=== PATIENT | male | born 1990 | race Caucasian/White ===

== ENCOUNTER 2024-09-16 13:29 | Inpatient (IN) | payer MEDICAID, OTHER ==
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
[2024-09-16 16:44] LABS: Amphetamine Screen,Urine Not Detected (NotDetected); Barbiturate Screen,Urine Not Detected (NotDetected); Benzodiazepines Screen,Urine Not Detected (NotDetected); Cocaine Screen,Urine Not Detected (NotDetected); Methadone Screen, Urine Not Detected (NotDetected); Opiate Screen,Urine Not Detected (NotDetected); Oxycodone Screen, Urine Not Detected (NotDetected); Phencyclidine Screen,Urine Not Detected (NotDetected); Tricyclic Antidepressant,Urine Not Detected (NotDetected); Urn Cannabinoid Scrn Detected (NotDetected)
[2024-09-16] MEDS ORDERED: ACETAMINOPHEN TAB 325 MG TAB PO PRN (21:59)
[2024-09-16] MEDS ORDERED: LORazepam 2 MG/ML INJ IM PRN (21:59)
[2024-09-16] MEDS ORDERED: haloperidoL 5 MG TAB PO PRN (21:59)
[2024-09-16] MEDS ORDERED: HALOPERIDOL LACTATE 5 MG/ML 1 ML VIAL IM PRN (21:59)
[2024-09-16] MEDS ORDERED: MAG HYDROX/AL HYDROX/SIMETH 355 ML BOTTLE PO PRN (21:59)
[2024-09-16] MEDS ORDERED: LORazepam 1 MG TAB PO PRN (21:59)
[2024-09-16] MEDS ORDERED: IBUPROFEN 600 MG TAB PO PRN (21:59)
[2024-09-16] MEDS ORDERED: QUEtiapine 25 MG TAB PO PRN (21:59)
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
[2024-09-17 06:44] VITALS: RESP 16
[2024-09-17 09:29] LABS: Basophils % (A) 1 %; Eosinophils # (A) 0.2 k/uL (0-0.7); Eosinophils % (A) 4 %; HGB 16.1 gm/dL (13.0-17.5); Lymphocytes # (A) 1.7 k/uL (1.0-4.8); Lymphocytes % (A) 30 %; MCH 32.5 pg (25.0-35.0); MCHC 33.5 g/dL (31.0-37.0); MCV 96.8 fL (80.0-100.0); Mean Platelet Volume 7.7; Monocytes # (A) 0.3 k/uL (0-1.0); Monocytes % (A) 5 %; Neutrophils # (A) 3.4 k/uL (1.3-7.7); Neutrophils % (A) 58 %; Platelet Count 344 k/uL (150-450); RBC 4.96 m/uL (4.30-5.90); RDW 12.1 % (11.5-15.5); WBC 5.7 k/uL (3.8-10.6)
[2024-09-17] MEDS: NICOTINE 14MG/24HR PATCH TRANSDERM SCH (09:34)
[2024-09-17 09:46] LABS: ALT 28 U/L (4-49); AST 24 U/L (17-59); African American GFR (CKD) >90 (>60 ml/min/1.73 sqM); Albumin 4.8 g/dL (3.5-5.0); Alkaline Phosphatase 90 U/L (38-126); Anion Gap 9 mmol/L; Bilirubin, Delta 0.1 mg/dL (0.0-0.2); Bilirubin,Unconjugated 0.8 mg/dL (0.0-1.1); Blood Urea Nitrogen 11 mg/dL (9-20); Calcium 9.2 mg/dL (8.4-10.2); Carbon Dioxide 26 mmol/L (22-30); Chloride 103 mmol/L (98-107); Glucose 115 mg/dL (74-99); Non-African American GFR(CKD) >90 (>60 ml/min/1.73 sqM); Potassium 4.6 mmol/L (3.5-5.1); Sodium 138 mmol/L (137-145); Total Bilirubin 0.9 mg/dL (0.2-1.3); Total Protein 7.6 g/dL (6.3-8.2)
[2024-09-17] MEDS ORDERED: traZODone HCL 50 MG TAB PO PRN (12:35)
[2024-09-17] MEDS: SERTRALINE 25 MG TAB PO SCH (12:43)
[2024-09-17] MEDS: LITHIUM CARBONATE 150 MG CAP PO SCH (12:43)
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
[2024-09-17 13:24] LABS: Appearance,Urine Clear (Clear); Bilirubin,Urine Negative (Negative); Blood,Urine Negative (Negative); Color,Urine Light Yellow; Glucose,Urine (UA) Negative (Negative); Ketones,Urine Negative (Negative); Leukocyte Esterase,Urine Negative (Negative); Nitrite,Urine Negative (Negative); PH, Urine 7.5 (5.0-8.0); Protein,Urine Trace (Negative); Specific Gravity,Urine 1.019 (1.001-1.035); Urobilinogen,Urine <2.0 mg/dL (<2.0)
[2024-09-17 15:14] LABS: Chol/HDL Ratio 3.73 Ratio; LDL Cholesterol,Calculated 104.4 mg/dL (0.0-131.0); VLDL Calculation 10.46 mg/dL (5.00-40.00)
[2024-09-18] MEDS: MAGNESIUM HYDROXIDE 2,400 MG/30 ML CUP PO PRN (08:55)
--- NOTE | 2024-09-18 11:29 | P.PN ---
Progress Note - Text Progress Note Date: 09/18/24 Interval History: Patient was seen in group, and was directable and agreeable to speak with securities underwriter in the office. He reports that he is a little sad, and a little anxious today. He keeps thinking of his missing cat. He claims his stomach is upset a bit, and that he was mildly constipated. He took some medication to help with that, and it helped. He had a restless sleep last night, he states he tossed and turned, and woke up several times during the night. He is endorsing a good appetite. He states that his racing thoughts are calming down. At this time patient denies any suicidal or homicidal ideations, intent or plan. Patient denies any auditory, visual hallucinations and denies any paranoia or delusions. Patient denies any side effects from the medications and has been compliant with meds. MENTAL STATUS EXAM: General Appearance: Patient appears to be stated age is alert, directable, and attempts to cooperate. Patient appears to have fair hygiene and grooming. Balding. Unshaved face. Dressed casually. Behavior: Patient is seated without any agitated behavior. fair eye contact. Speech: Patient's speech is fluent and nonpressured. Mood/Affect: Patient reports their mood is a little sad, affect is congruent and constricted, mildly improving Suicidality/Homicidality: Patient denies having any homicidal ideation intent or plan. Denies any suicidal ideations intent or plan Perceptions: Patient denies any visual hallucinations and denies any auditory hallucinations Though content/process: There is no evidence of any delusional thought content and thought process is circumstantial and concrete, mildly improving Memory and concentration: AOX3, grossly intact for the purposes of this session. Judgment and insight: poor, mildly improving IMPRESSIONS: mood disorder, unspecified nicotine dependance cannabis use disorder PLAN: -Patient is admitted under [voluntary] status to MHU for stabilization of psychiatric symptoms and safety. Patient has signed adult voluntary form and medication consent and is placed in patient's chart. -Medications : increase Zoloft 50mg daily for mood/anxiety, lithium 150mg bid for mood stabilization, trazodone 50mg qhs prn for sleep -Ativan and Haldol PRN for agitation/aggression -NRT - [nicotine patch] -SW on board for discharge planning. Encourage patient to participate in groups to work on coping skills. Possible d/c Monday if patient continues to improve
[2024-09-19] MEDS: SERTRALINE 50 MG TAB PO SCH ×2 (08:54→21:36)
--- NOTE | 2024-09-19 11:18 | P.PN ---
Progress Note - Text Progress Note Date: 09/19/24 Interval History: Patient was seen in group, and was directable and agreeable to speak with handbook writer in the office. He reports a mildly queasy stomach. He does claim that his sleep is broken. He states that his home environment is very stressful, so he is anxious about that. He is looking forward to looking for a job, so he can get his own place. He endorses a good appetite. He is going to all the groups. At this time patient denies any suicidal or homicidal ideations, intent or plan. Patient denies any auditory, visual hallucinations and denies any paranoia or delusions. Patient denies any side effects from the medications and has been compliant with meds. MENTAL STATUS EXAM: General Appearance: Patient appears to be stated age is alert, directable, and attempts to cooperate. Patient appears to have fair hygiene and grooming. Balding. Unshaved face. Dressed casually. Behavior: Patient is seated without any agitated behavior. fair eye contact. Speech: Patient's speech is fluent and nonpressured. Mood/Affect: Patient reports their mood is improving, affect is congruent and mildly improving Suicidality/Homicidality: Patient denies having any homicidal ideation intent or plan. Denies any suicidal ideations intent or plan Perceptions: Patient denies any visual hallucinations and denies any auditory hallucinations Though content/process: There is no evidence of any delusional thought content and thought process is circumstantial and concrete, mildly improving Memory and concentration: AOX3, grossly intact for the purposes of this session. Judgment and insight: mildly improving IMPRESSIONS: mood disorder, unspecified nicotine dependance cannabis use disorder PLAN: -Patient is admitted under [voluntary] status to [facility]HU for stabilization of psychiatric symptoms and safety. Patient has signed adult voluntary form and medication consent and is placed in patient's chart. -Medications :change Zoloft 50mg qhs for mood/anxiety,change lithium 300mg qhs for mood stabilization, trazodone 50mg qhs prn for sleep -Ativan and Haldol PRN for agitation/aggression -NRT - [nicotine patch] -SW on board for discharge planning. Encourage patient to participate in groups to work on coping skills. Possible d/c tomorrow, if patient continues to improve
[2024-09-19] MEDS: LITHIUM CARBONATE 300 MG CAP PO SCH (21:36)
[2024-09-20 06:34] VITALS: BP 122/77; PULSE 61; TEMP 97.8
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
== END 2024-09-20 13:01 | disposition home or self-care (01) | DRG 753 ==
LOC: EC 13:29 → 3MHU 21:56
PROVIDERS: ADMIT Psychiatry & Neurology Psychiatry; ATTEND Psychiatry & Neurology Psychiatry
DX: F39 Unspecified mood [affective] disorder (principal); F12.90 Cannabis use, unspecified, uncomplicated; F17.210 Nicotine dependence, cigarettes, uncomplicated; F22 Delusional disorders; F32.A Depression, unspecified; F41.0 Panic disorder [episodic paroxysmal anxiety]; F51.5 Nightmare disorder; K59.00 Constipation, unspecified; R45.851 Suicidal ideations; Z63.9 Problem related to primary support group, unspecified; Z79.899 Other long term (current) drug therapy; Z11.52 Encounter for screening for COVID-19
CPT/HCPCS: 80053; 80061; 80306; 81003; 82075; 82248; 83036; 84443; 85025; 87636; 99285

== ENCOUNTER 2025-01-21 19:32 | Inpatient (IN) | payer MEDICAID, OTHER ==
--- NOTE | 2025-01-21 22:20 | ED ---
General Adult HPI - General Chief complaint: Psychiatric Symptoms Stated complaint: mental health Time Seen by Provider: 01/21/25 21:59 Source: patient, RN notes reviewed, old records reviewed Mode of arrival: ambulatory Limitations: no limitations - History of Present Illness Initial comments: Patient is a 34-year-old male who presents emergency department for psychiatric evaluation. Patient presents as a court ordered pickup. The patient's petition describes some bizarre behavior, concern for not taking medications, as well as possible agitation. Patient endorses marijuana use but no other drug use. Denies any suicidal or homicidal ideations or intents or plans. Denies any hallucinations. Is currently cooperative. Presents for further evaluation at this time. - Related Data Previous Rx's Medication Instructions Recorded [place] Carbonate 300 mg PO HS 30 Days #30 cap 09/20/24 Nicotine 14Mg/24Hr Patch [Habitrol] 1 patch TRANSDERM DAILY 14 Days 09/20/24 #14 patch Sertraline [Zoloft] 50 mg PO HS 30 Days #30 tab 09/20/24 Allergies Allergy/AdvReac Type Severity Reaction Status Date / Time Fish Containing Products Allergy Anaphylaxis Verified 01/21/25 20:20 [Fish] peanut Allergy Anaphylaxis Verified 01/21/25 20:20 shellfish derived [Shellfish] Allergy Rash/Hives Verified 01/21/25 20:20 shrimp Allergy Rash/Hives Verified 01/21/25 20:20 tree nut Allergy Anaphylaxis Verified 01/21/25 20:20 Review of Systems ROS Statement: Those systems with pertinent positive or pertinent negative responses have been documented in the HPI. Review of Systems: CONST: Denies fever EYES: Denies blurry vision ENT: Denies nasal congestion C/V: Denies Chest pain RESP: Denies shortness of breath GI: Denies abdominal pain : Denies dysuria SKIN: Denies rash. MSK: Denies joint pain. NEURO: Denies headache ROS Other: All systems not noted in ROS Statement are negative. Past Medical History Past Medical History: Asthma History of Any Multi-Drug Resistant Organisms: None Reported Past Surgical History: Appendectomy Past Psychological History: Anxiety, Depression, Panic Disorder Smoking Status: Never smoker Past Alcohol Use History: None Reported Past Drug Use History: Marijuana - Past Family History Mother History Unknown: Yes General Exam - General Exam Comments Initial Comments: General: Appears in no acute distress. HEAD: Normal with no signs of head trauma. EYES: EOMI. ENT: Hearing grossly intact. RESPIRATORY: No respiratory distress. C/V: Regular rate and rhythm. ABD: Abdomen is nondistended. EXT: No obvious deformity. SKIN: No rashes or lesions observed on exposed skin. NEURO: Alert and oriented. Limitations: no limitations Course Vital Signs 01/21/25 01/22/25 20:21 00:24 Temperature 98.0 F 97.8 F Pulse Rate 59 L 71 Respiratory 18 18 Rate Blood Pressure 124/76 124/84 O2 Sat by Pulse 98 97 Oximetry Medical Decision Making - Medical Decision Making Was pt. sent in by a medical professional or institution (, PA, FLIGHT FOLLOWER, urgent care, hospital, or care home...) When possible be specific @ -No Did you speak to anyone other than the patient for history (EMS, parent, family, police, friend...)? What history was obtained from this source @ -No Did you review nursing and triage notes (agree or disagree)? Why? @ -I reviewed and agree with nursing and triage notes Were old charts reviewed (outside hosp., previous admission, EMS record, old EKG, old radiological studies, urgent care reports/EKG's, care home records)? Report findings @ -Reviewed the petition. Differential Diagnosis (chest pain, altered mental status, abdominal pain women, abdominal pain men, vaginal bleeding, weakness, fever, dyspnea, syncope, headache, dizziness, GI bleed, back pain, seizure, CVA, palpatations, mental health, musculoskeletal)? @ -Differential Mental Health Depression, anxiety, bipolar, psychosis, schizophrenia, borderline personality, situational depression, adjustment disorder, behavioral disorder, brain tumor, malingering, substance abuse, encephalopathy, medication reaction, dementia, hypothyroidism, degenerative neurologic disorder, lupus.... This is not meant to be all-inclusive list EKG interpreted by me (3pts min.). @ -None done X-rays interpreted by me (1pt min.). @ -None done CT interpreted by me (1pt min.). @ -None done U/S interpreted by me (1pt. min.). @ -None done What testing was considered but not performed or refused? (CT, X-rays, U/S, labs)? Why? @ -None What meds were considered but not given or refused? Why? @ -None Did you discuss the management of the patient with other professionals (professionals i.e. , PA, FLIGHT FOLLOWER, lab, RT, psych nurse, social service worker, scissors grinder, teacher, human resource officer, family independence case manager)? Give summary @ -EPS notified of the consult Was smoking cessation discussed for >3mins.? @ -No Was critical care preformed (if so, how long)? @ -No Were there social determinants of health that impacted care today? How? (Homelessness, low income, unemployed, alcoholism, drug addiction, transportation, low edu. Level, literacy, decrease access to med. care, intermediate, rehab)? @ -No Was there de-escalation of care discussed even if they declined (Discuss DNR or withdrawal of care, Hospice)? DNR status @ -No What co-morbidities impacted this encounter? (DM, HTN, Smoking, COPD, CAD, Cancer, CVA, ARF, Chemo, Hep., AIDS, mental health diagnosis, sleep apnea, mor bid obesity)? @ -None Was patient admitted / discharged? Hospital course, mention meds given and ro shannon, prescriptions, significant lab abnormalities, going to OR and other pertinent info. @ -Patient presents as a court ordered petition for medication noncompliance as well as bizarre behavior. Does have a mental health history. Currently cooperative. Vitals within acceptable limits. Has no acute complaints at this time. BAT is 0. UDS is pending. At this time, patient is medically cleared for evaluation by psychiatry. Disposition pending psychiatric evaluation. EPS notified of the consult. Patient evaluated by EPS and determined that he does meet inpatient criteria for admission. Undiagnosed new problem with uncertain prognosis? @ -No Drug Therapy requiring intensive monitoring for toxicity (Heparin, Nitro, Insulin, Cardizem)? @ -No Were any procedures done? @ -No Diagnosis/symptom? @ -Encounter for psychiatric evaluation, medication noncompliance, bizzarre behavior. Acute, or Chronic, or Acute on Chronic? @ -Acute Uncomplicated (without systemic symptoms) or Complicated (systemic symptoms)? @ -Complicated Side effects of treatment? @ -None Exacerbation, Progression, or Severe Exacerbation] @ -No Poses a threat to life or bodily function? @ -Possibly, yes - Lab Data Result diagrams: 01/22/25 08:02 01/22/25 08:02 Lab Results 01/21/25 01/21/25 01/21/25 Range/Units 22:47 22:47 22:47 Urine Color Yellow Urine Appearance Cloudy (Clear) Urine pH 7.0 (5.0-8.0) Ur Specific [place] 1.027 (1.001-1.035) Urine Protein Trace H (Negative) Urine Glucose (UA) Negative (Negative) Urine Ketones Negative (Negative) Urine Blood Negative (Negative) Urine Nitrite Negative (Negative) Urine Bilirubin Negative (Negative) Urine Urobilinogen 2.0 (<2.0) mg/dL Ur Leukocyte Esterase Negative (Negative) Urine RBC 1 (0-5) /hpf Urine WBC 3 (0-5) /hpf Ur Squamous Epith Cells <1 (0-4) /hpf Amorphous Sediment Few H (None) /hpf Urine Mucus Occasional H (None) /hpf Urine Opiates Screen Not Detected (NotDetected) Ur Oxycodone Screen Not Detected (NotDetected) Urine Methadone Screen Not Detected (NotDetected) Ur Barbiturates Screen Not Detected (NotDetected) U Tricyclic Antidepress Not Detected (NotDetected) Ur Phencyclidine Scrn Not Detected (NotDetected) Ur Amphetamines Screen Not Detected (NotDetected) U Methamphetamines Scrn Not Detected (NotDetected) U Benzodiazepines Scrn Not Detected (NotDetected) Urine Cocaine Screen Not Detected (NotDetected) U Marijuana (THC) Screen Detected H (NotDetected) SARS-CoV-2 (PCR) Not Detected (Not Detectd) Disposition Clinical Impression: Encounter for psychiatric assessment, Nonadherence to medication, Bizarre behavior Disposition: TRANSFER TO PSYCH HOSP/UNIT Condition: Stable Time of Disposition: 23:20
[2025-01-22 00:11] LABS: Amphetamine Screen,Urine Not Detected (NotDetected); Barbiturate Screen,Urine Not Detected (NotDetected); Benzodiazepines Screen,Urine Not Detected (NotDetected); Cocaine Screen,Urine Not Detected (NotDetected); Methadone Screen, Urine Not Detected (NotDetected); Opiate Screen,Urine Not Detected (NotDetected); Phencyclidine Screen,Urine Not Detected (NotDetected); Tricyclic Antidepressant,Urine Not Detected (NotDetected); Urn Cannabinoid Scrn Detected (NotDetected)
[2025-01-22 00:12] LABS: Oxycodone Screen, Urine Not Detected (NotDetected)
[2025-01-22] MEDS ORDERED: HALOPERIDOL LACTATE 5 MG/ML 1 ML VIAL IM PRN (00:16)
[2025-01-22] MEDS ORDERED: haloperidoL 5 MG TAB PO PRN (00:16)
[2025-01-22] MEDS ORDERED: LORazepam 1 MG TAB PO PRN (00:16)
[2025-01-22] MEDS ORDERED: MAGNESIUM HYDROXIDE 2,400 MG/30 ML CUP PO PRN (00:16)
[2025-01-22] MEDS ORDERED: MAG HYDROX/AL HYDROX/SIMETH 355 ML BOTTLE PO PRN (00:16)
[2025-01-22] MEDS ORDERED: IBUPROFEN 600 MG TAB PO PRN (00:16)
[2025-01-22] MEDS ORDERED: LORazepam 2 MG/ML INJ IM PRN (00:16)
[2025-01-22] MEDS ORDERED: ACETAMINOPHEN TAB 325 MG TAB PO PRN (00:16)
[2025-01-22 07:38] LABS: Amorphous Sediment,Urine Few /hpf; Appearance,Urine Cloudy (Clear); Bilirubin,Urine Negative (Negative); Blood,Urine Negative (Negative); Color,Urine Yellow; Glucose,Urine (UA) Negative (Negative); Ketones,Urine Negative (Negative); Leukocyte Esterase,Urine Negative (Negative); Mucus,Urine Occasional /hpf; Nitrite,Urine Negative (Negative); Protein,Urine Trace (Negative); RBC,Urine 1 /hpf (0-5); Specific Gravity,Urine 1.027 (1.001-1.035); Squamous Epithelial Cell,Urine <1 /hpf (0-4); WBC,Urine 3 /hpf (0-5)
[2025-01-22 08:22] LABS: Basophils # (A) 0.1 k/uL (0-0.2); Basophils % (A) 1 %; Eosinophils # (A) 0.4 k/uL (0-0.7); Eosinophils % (A) 6 %; HCT 47.9 % (39.0-53.0); HGB 14.7 gm/dL (13.0-17.5); Lymphocytes # (A) 1.8 k/uL (1.0-4.8); Lymphocytes % (A) 27 %; MCH 30.6 pg (25.0-35.0); MCHC 30.6 g/dL (31.0-37.0); MCV 99.9 fL (80.0-100.0); Mean Platelet Volume 7.2; Monocytes # (A) 0.4 k/uL (0-1.0); Monocytes % (A) 6 %; Neutrophils # (A) 4.1 k/uL (1.3-7.7); Neutrophils % (A) 59 %; Platelet Count 331 k/uL (150-450); RDW 11.7 % (11.5-15.5); WBC 6.9 k/uL (3.8-10.6)
[2025-01-22 08:31] LABS: ALT 21 U/L (4-49); AST 20 U/L (17-59); African American GFR (CKD) >90 (>60 ml/min/1.73 sqM); Albumin 4.6 g/dL (3.5-5.0); Alkaline Phosphatase 92 U/L (38-126); Anion Gap 8 mmol/L; Blood Urea Nitrogen 15 mg/dL (9-20); Calcium 9.3 mg/dL (8.4-10.2); Carbon Dioxide 27 mmol/L (22-30); Chloride 103 mmol/L (98-107); Glucose 95 mg/dL (74-99); Non-African American GFR(CKD) >90 (>60 ml/min/1.73 sqM); Potassium 4.4 mmol/L (3.5-5.1); Sodium 138 mmol/L (137-145); Total Bilirubin 0.4 mg/dL (0.2-1.3); Total Protein 7.1 g/dL (6.3-8.2)
[2025-01-22] MEDS: NICOTINE 14MG/24HR PATCH TRANSDERM SCH (10:04)
--- NOTE | 2025-01-22 12:51 | P.HP ---
Psychiatric H&P - . H&P Date: 01/22/25 History & Physical: Allergies Allergy/AdvReac Type Severity Reaction Status Date / Time Fish Containing Products Allergy Anaphylaxis Verified 01/21/25 20:20 Fish peanut Allergy Anaphylaxis Verified 01/21/25 20:20 shellfish derived shellfish Allergy Rash/Hives Verified 01/21/25 20:20 shrimp Allergy Rash/Hives Verified 01/21/25 20:20 tree nut Allergy Anaphylaxis Verified 01/21/25 20:20 Vital Signs Temp 97.6 F 01/22/25 00:37 Pulse 71 01/22/25 09:37 Resp 16 01/22/25 09:37 BP 122/73 01/22/25 09:37 Pulse Ox 99 01/22/25 00:37 FiO2 Intake & Output 01/21/25 01/22/25 01/22/25 18:59 06:59 18:59 Weight 73.227 kg Laboratory Last Values WBC 6.9 k/uL (3.8-10.6) 01/22/25 08:02 RBC 4.80 m/uL (4.30-5.90) 01/22/25 08:02 Hgb 14.7 gm/dL (13.0-17.5) 01/22/25 08:02 Hct 47.9 % (39.0-53.0) 01/22/25 08:02 MCV 99.9 fL (80.0-100.0) 01/22/25 08:02 MCH 30.6 pg (25.0-35.0) 01/22/25 08:02 MCHC 30.6 g/dL (31.0-37.0) L 01/22/25 08:02 RDW 11.7 % (11.5-15.5) 01/22/25 08:02 Plt Count 331 k/uL (150-450) 01/22/25 08:02 MPV 7.2 01/22/25 08:02 Neutrophils % 59 % 01/22/25 08:02 Lymphocytes % 27 % 01/22/25 08:02 Monocytes % 6 % 01/22/25 08:02 Eosinophils % 6 % 01/22/25 08:02 Basophils % 1 % 01/22/25 08:02 Neutrophils # 4.1 k/uL (1.3-7.7) 01/22/25 08:02 Lymphocytes # 1.8 k/uL (1.0-4.8) 01/22/25 08:02 Monocytes # 0.4 k/uL (0-1.0) 01/22/25 08:02 Eosinophils # 0.4 k/uL (0-0.7) 01/22/25 08:02 Basophils # 0.1 k/uL (0-0.2) 01/22/25 08:02 Sodium 138 mmol/L (137-145) 01/22/25 08:02 Potassium 4.4 mmol/L (3.5-5.1) 01/22/25 08:02 Chloride 103 mmol/L (98-107) 01/22/25 08:02 Carbon Dioxide 27 mmol/L (22-30) 01/22/25 08:02 Anion Gap 8 mmol/L 01/22/25 08:02 BUN 15 mg/dL (9-20) 01/22/25 08:02 Creatinine 0.68 mg/dL (0.66-1.25) 01/22/25 08:02 Est GFR (CKD-EPI)AfAm >90 (>60 ml/min/1.73 sqM) 01/22/25 08:02 Est GFR (CKD-EPI)NonAf >90 (>60 ml/min/1.73 sqM) 01/22/25 08:02 Glucose 95 mg/dL (74-99) 01/22/25 08:02 Calcium 9.3 mg/dL (8.4-10.2) 01/22/25 08:02 Total Bilirubin 0.4 mg/dL (0.2-1.3) 01/22/25 08:02 AST 20 U/L (17-59) 01/22/25 08:02 ALT 21 U/L (4-49) 01/22/25 08:02 Alkaline Phosphatase 92 U/L (38-126) 01/22/25 08:02 Total Protein 7.1 g/dL (6.3-8.2) 01/22/25 08:02 Albumin 4.6 g/dL (3.5-5.0) 01/22/25 08:02 TSH 2.330 mIU/L (0.465-4.680) 01/22/25 08:02 Urine Color Yellow 01/21/25 22:47 Urine Appearance Cloudy (Clear) 01/21/25 22:47 Urine pH 7.0 (5.0-8.0) 01/21/25 22:47 Ur Specific [place] 1.027 (1.001-1.035) 01/21/25 22:47 Urine Protein Trace (Negative) H 01/21/25 22:47 Urine Glucose (UA) Negative (Negative) 01/21/25: Urine Ketones Negative (Negative) 01/21/25: Urine Blood Negative (Negative) 01/21/25: Urine Nitrite Negative (Negative) 01/21/25: Urine Bilirubin Negative (Negative) 01/21/25: Urine Urobilinogen 2.0 mg/dL (<2.0) 01/21/25 22: Ur Leukocyte Esterase Negative (Negative) 01/21/25 22: Urine RBC 1 /hpf (0-5) 01/21/25 22: Urine WBC 3 /hpf (0-5) 01/21/25 22: Ur Squamous Epith Cells <1 /hpf (0-4) 01/21/25 22:47 Amorphous Sediment Few /hpf (None) H 01/21/25 22:47 Urine Mucus Occasional /hpf (None) H 01/21/25 22:47 Urine Opiates Screen Not Detected (NotDetected) 01/21/25 22:47 Ur Oxycodone Screen Not Detected (NotDetected) 01/21/25 22:47 Urine Methadone Screen Not Detected (NotDetected) 01/21/25 22:47 Ur Barbiturates Screen Not Detected (NotDetected) 01/21/25 22:47 U Tricyclic Antidepress Not Detected (NotDetected) 01/21/25 22:47 Ur Phencyclidine Scrn Not Detected (NotDetected) 01/21/25 22:47 Ur Amphetamines Screen Not Detected (NotDetected) 01/21/25 22:47 U Methamphetamines Scrn Not Detected (NotDetected) 01/21/25 22:47 U Benzodiazepines Scrn Not Detected (NotDetected) 01/21/25 22:47 Urine Cocaine Screen Not Detected (NotDetected) 01/21/25 22:47 U Marijuana (THC) Screen Detected (NotDetected) H 01/21/25 22:47 SARS-CoV-2 (PCR) Not Detected (Not Detectd) 01/21/25 22:47 01/22/25 12:28 IDENTIFYING DATA: Patient is a 34-year-old male. Lives with his mother and her significant other in a house. Single, no children. Unemployed. HPI: Patient presented to the hospital last night for psychiatric evaluation. Patient apparently was on a court order pickup for evaluation. Patient apparently was bizarre not taking medications appeared agitated. Urine drug screens positive for THC. Patient was last admitted to mental health unit in September 2024. He was discharged on lithium and Zoloft at that time. Patient was seen interacting with others on the unit, agreeable to speak to pattern chart writer in the office today. He appeared to be a bit labile in his emotions, was loud at times during the interview, bizarre, intrusive at times. Claims that he about a week ago he got a new ed case manager from [facility] and claims that "I feel like nothing is progressing" and states that he feels that he may have scared her off and claims that he went to his room states that "maybe I talk too loud". He feels that he has been having more mood swings increase in energy was rambling at times, tangential during conversation, was fairly talkative endorsing racing thoughts. Claims that he has been feeling more worked up lately. Claims that his team at [facility] has been "playing the [employer] advocate". He states that he is also still looking for his lost cat. He was fairly intrusive and animated. Claims that his sleep has been on and off appetite has been fair. patient denies any suicidal or homicidal ideations intent or plan. At this time patient denies any auditory or visual hallucinations. Patient admits to using marijuana and cigarettes. PAST PSYCHIATRIC HISTORY: Patient has a history of mood disorder, possibly bipolar, cannabis use. Patient was last admitted to the mental health unit in September 2020 for. Patient currently follows up with [facility], does not know the names of the people involved in his care. Patient states that he was previously on Zoloft and lithium however claims that for the past 2 or 3 weeks he stopped taking it. Patient denies any history of suicide attempts in the past. PMH:As per ED note ALLERGIES: as per EMR CHEMICAL DEPENDENCY HISTORY: as per HPI FAMILY PSYCHIATRIC/SUBSTANCE USE HISTORY: Patient is unsure SOCIAL HISTORY: Patient was born and raised in [place], currently lives in [place]. Has a GED. Single. No children. Lives with his mother. Unemployed. Has been to group home for a day when he was 21. MENTAL STATUS EXAM: General Appearance: Patient appears to be stated age is alert, directable, and attempts to cooperate. Patient appears to have fair hygiene and grooming. Balding. Unshaved face. Dressed casually. Behavior: Patient is seated without any agitated behavior. Patient is fairly intrusive, labile at times Speech: Patient's speech is fluent, rambling talkative. Mood/Affect: Patient reports their mood is anxious and claims he has mood swings, affect is congruent and fairly labile Suicidality/Homicidality: Patient denies having any homicidal ideation intent or plan. Denies any suicidal ideations intent or plan Perceptions: Patient denies any visual hallucinations [and denies any auditory hallucinations Though content/process: There is no evidence of any delusional thought content and thought process is circumstantial/tangential, endorsing racing thoughts Memory and concentration: AOX3, grossly intact for the purposes of this session. Can spell "WORLD" backwards Judgment and insight: poor STRENGTHS/WEAKNESSES: strength is that patient is resilient. Weakness is that patient has poor judgment and is impulsive and noncompliant with medications INTELLECT: average IMPRESSIONS: mood disorder, unspecified, likely bipolar disorder Noncompliance with medication regimen nicotine dependance cannabis use disorder PLAN: -Patient is admitted under voluntary status to MHU for stabilization of psychiatric symptoms and safety. Patient has signed adult voluntary form and medication consent and is placed in patient's chart. -Medications : Zoloft 50 mg nightly for mood/anxiety, trazodone 50mg qhs for sleep, Abilify 5 mg daily for mood stabilization, patient might be interested in long-acting injection. -Ativan and Haldol PRN for agitation/aggression -Patient was informed of the risks, benefits and side effects of the medication and patient verbally consented to taking the medications. Patient signed medication consent form, was offered information on medications and excepted it. -Internal Medicine consult to perform medical evaluation and physical. -NRT -nicotine patch -SW on board for discharge planning. Encourage patient to participate in groups to work on coping skills. 01/22/25 12:46
[2025-01-22] MEDS: ARIPiprazole 5 MG TAB PO SCH (13:08)
[2025-01-22] MEDS: traZODone HCL 50 MG TAB PO SCH (20:48)
[2025-01-22] MEDS: SERTRALINE 50 MG TAB PO SCH (20:48)
--- NOTE | 2025-01-22 22:36 | P.MDCNMH ---
History of Present Illness H&P Date: 01/22/25 Patient is a 34-year-old male who presents for psychiatric evaluation. Arrived as a court ordered pickup. He has been having bizarre behavior and there has been concern of him being noncompliant with his medication. Patient states he has been feeling restless and that his mind is racing. Patient endorses nicotine and marijuana use. Denies any suicidal/homicidal behavior. Denies any fever, chills, chest pain, shortness of breath, abdominal pain. Pertinent positives and negatives as discussed above, a complete review of systems was performed and all other systems are negative. Vitals: Signs Reviewed Physical Exam: General: nontoxic, no distress, appears at stated age Derm: warm, dry, intact Head: atraumatic, normocephalic, symmetric Eyes: EOMI, anicteric sclera Mouth: no lip lesion, mucus membranes moist Cardiovascular: S1 S2 reg, no murmur, rubs, or gallops Lungs: CTA bilateral, no rhonchi, no rales, no accessory muscle use Abdominal: soft, non-tender to palpataion, no appreciable organomegaly Extremities: no gross muscle atrophy, no edema, no contractures Neuro: Alert, Oriented, CNII-XII grossly intact, gait normal Psych: well appearing, appropriate affect Data Received Today: Pertinent Labs: WBC 6.9, Hgb 14.7, platelet 331, sodium 138, potassium 4.4, BUN 15, creatinine 0.68 Imaging: N/A Assessment and Plan: Nicotine dependence Cannabis use disorder THC detected on UDS Counseled on cessation of nicotine and marijuana use Unspecified mood disorder Defer management to psych team Thank you for this consultation. [facility] Please not hesitate for any further questions. Jj Salgado MD PGY-1 IM Dictation was produced using rSmart dictation software. Please excuse any grammatical, word or spelling errors. Past Medical History Past Medical History: Asthma History of Any Multi-Drug Resistant Organisms: None Reported Past Surgical History: Appendectomy Past Anesthesia/Blood Transfusion Reactions: No Reported Reaction Past Psychological History: Anxiety, Depression, Panic Disorder Smoking Status: Never smoker Past Alcohol Use History: None Reported Past Drug Use History: Marijuana - Past Family History Mother History Unknown: Yes Medications and Allergies Home Medications Medication Instructions Recorded Confirmed Type RX: [place] Carbonate 300 mg PO HS 30 Days #30 cap 09/20/24 Rx RX: Nicotine 14Mg/24Hr Patch 1 patch TRANSDERM DAILY 14 Days 09/20/24 Rx [Habitrol] #14 patch RX: Sertraline [Zoloft] 50 mg PO HS 30 Days #30 tab 09/20/24 Rx Allergies Allergy/AdvReac Type Severity Reaction Status Date / Time Fish Containing Products Allergy Anaphylaxis Verified 01/21/25 20:20 [Fish] peanut Allergy Anaphylaxis Verified 01/21/25 20:20 shellfish derived [Shellfish] Allergy Rash/Hives Verified 01/21/25 20:20 shrimp Allergy Rash/Hives Verified 01/21/25 20:20 tree nut Allergy Anaphylaxis Verified 01/21/25 20:20 Physical Exam Vitals: Vital Signs Temp Pulse Pulse Resp BP BP Pulse Ox 01/22/25 21:00 98.0 F 61 16 135/79 98 01/22/25 09:37 71 16 122/73 01/22/25 00:37 97.6 F 79 16 109/73 99 01/22/25 00:24 97.8 F 71 18 124/84 97 Intake and Output 01/22/25 01/22/25 01/22/25 06:59 14:59 22:59 Other: Weight 73.227 kg Cranial Nerve Examination - Cranial Nerves Cranial Nerve II- Optic: Intact Cranial Nerve III- Oculomotor: Intact Cranial Nerve IV- Trochlear: Intact Cranial Nerve V- Trigeminal: Intact Cranial Nerve - Abducens: Intact Cranial Nerve VII- Facial: Intact Cranial Nerve VIII- Auditory: Intact Cranial Nerve IX- Glossopharyngeal: Intact Cranial Nerve X- Vagus: Intact Cranial Nerve XI- Accessory: Intact Cranial Nerve XII- Hypoglossal: Intact Results CBC & Chem 7: 01/22/25 08:02 01/22/25 08:02 Labs: Abnormal Lab Results - Last 24 Hours (Table) 01/21/25 01/21/25 01/22/25 Range/Units 22:47 22:47 08:02 MCHC 30.6 L (31.0-37.0) g/dL Urine Protein Trace H (Negative) Amorphous Sediment Few H (None) /hpf Urine Mucus Occasional H (None) /hpf U Marijuana (THC) Screen Detected H (NotDetected)
[2025-01-23 08:34] LABS: Chol/HDL Ratio 3.57 Ratio; LDL Cholesterol,Calculated 74.3 mg/dL (0.0-131.0)
--- NOTE | 2025-01-23 13:01 | P.PN ---
Progress Note - Text Progress Note Date: 01/23/25 Interval History: Patient was seen today wandering the hallways and was agreeable to speak to wr iter in the office. Patient states that he is doing a bit better today, he appears to be a little bit less intrusive today less rambling. A bit more redirectable during conversation. He is less focused on any delusions today, claims that his racing thoughts are a bit better. States that he feels medications have been helping him a little bit. He did claim that he was a bit stressed out earlier today due to something that somebody was saying during group. He is agreeable to continue on with his medications, claims that he slept a bit better last night. He remains indifferent on the long-acting injection. Claims that he has been eating well. Going to some groups. Denies any auditory or visual hallucinations denies any suicidal homicidal ideations intent or plan. MENTAL STATUS EXAM: General Appearance: Patient appears to be stated age is alert, directable, and attempts to cooperate. Patient appears to have fair hygiene and grooming. Balding. Unshaved face. Dressed casually. Behavior: Patient is seated without any agitated behavior. Intrusive today, not labile Speech: Patient's speech is fluent, rambling. Mood/Affect: Patient reports their mood is anxious, improving, affect is congruent and, improving Suicidality/Homicidality: Patient denies having any homicidal ideation intent or plan. Denies any suicidal ideations intent or plan Perceptions: Patient denies any visual hallucinations [and denies any auditory hallucinations Though content/process: There is no evidence of any delusional thought content and thought process is less circumstantial/tangential, less racing thoughts Memory and concentration: AOX3, grossly intact for the purposes of this session Judgment and insight: poor improving mildly IMPRESSIONS: mood disorder, unspecified, likely bipolar disorder Noncompliance with medication regimen nicotine dependance cannabis use disorder PLAN: -Patient is admitted under voluntary status to MHU for stabilization of psychiatric symptoms and safety. Patient has signed adult voluntary form and medication consent and is placed in patient's chart. -Medications : Zoloft 50 mg nightly for mood/anxiety, trazodone 50mg qhs for sleep, increase Abilify 7.5 mg daily for mood stabilization, patient might be interested in long-acting injection. -Ativan and Haldol PRN for agitation/aggression -NRT -nicotine patch -SW on board for discharge planning. Encourage patient to participate in groups to work on coping skills. Hopeful for discharge early next week
[2025-01-24] MEDS: ARIPiprazole 5 MG TAB PO SCH (09:40)
--- NOTE | 2025-01-24 11:39 | P.PN ---
Progress Note - Text Progress Note Date: 01/24/25 Interval History: Patient was seen today taking part in activity group and was agreeable to speak to keno writer in the office. Patient states that he is doing a bit better today, claims that he feels that he is having less racing thoughts. He was less intrusive today less rambling. He did claim that it is his birthday today, we spoke about that. He was more directable during conversation, appears to have improvement in insight and judgment. We spoke about increasing his Abilify over the weekend which she is okay with. Claims that he slept about 5 hours last night wants to think about possibly increasing the trazodone but will speak with the weekend doctor about it. Denies any anxiety or depression today. He remains indifferent on the long-acting injection. going to some groups. Denies any auditory or visual hallucinations denies any suicidal homicidal ideations intent or plan. MENTAL STATUS EXAM: General Appearance: Patient appears to be stated age is alert, directable, and attempts to cooperate. Patient appears to have fair hygiene and grooming. Balding. Unshaved face. Dressed casually. Behavior: Patient is seated without any agitated behavior. Less intrusive today, more cooperative Speech: Patient's speech is fluent, rambling less today. Mood/Affect: Patient reports their mood is improving, affect is congruent and, improving Suicidality/Homicidality: Patient denies having any homicidal ideation intent or plan. Denies any suicidal ideations intent or plan Perceptions: Patient denies any visual hallucinations [and denies any auditory hallucinations Though content/process: There is no evidence of any delusional thought content and thought process is more goal oriented, less racing thoughts Memory and concentration: AOX3, grossly intact for the purposes of this session Judgment and insight: improving mildly IMPRESSIONS: mood disorder, unspecified, likely bipolar disorder Noncompliance with medication regimen nicotine dependance cannabis use disorder PLAN: -Patient is admitted under voluntary status to MHU for stabilization of psychiatric symptoms and safety. Patient has signed adult voluntary form and medication consent and is placed in patient's chart. -Medications : Zoloft 50 mg nightly for mood/anxiety, trazodone 50mg qhs for sleep, Abilify 7.5 mg daily , will increase to 10 mg daily for mood stabilization starting monday, patient might be interested in long-acting injection. -Ativan and Haldol PRN for agitation/aggression -NRT -nicotine patch -SW on board for discharge planning. Encourage patient to participate in groups to work on coping skills. Hopeful for discharge monday next week, will again offer AU to ensure compliance.
[2025-01-25] MEDS: ARIPiprazole 5 MG TAB PO ONE (08:52)
--- NOTE | 2025-01-25 15:49 | P.PN ---
Progress Note - Text Interval history: Patient was seen at the bedside and was directable and agreeable to speak with underwriter mortgage loan in the office. Scribed his mood as "feeling good" and feels that he is "doing all right". He notes feeling a little "groggy" when he woke up this morning but this tends to be something that he usually experiences to varying degrees each day. He denies experiencing any excessive worry or anxiety. He feels that he is tolerating the medications fine overall though he did have a little stomach upset today. He attributes this to eating more in the hospital that he eats at home as he usually only has 2 meals a day.. At this time patient denies any suicidal or homicidal ideations intent or plan. Denies any auditory or visual hallucinations. Patient denies any significant side effects from the medications and has been compliant with meds. Mental status exam: General Appearance: Patient appears to be stated age is alert, directable, and cooperative. Behavior: No agitated behavior. Patient is calm and directable Speech: Patient's speech is fluent and nonpressured. Mood/Affect: Mood "feeling good", affect is congruent and constricted.. Suicidality/Homicidality: Patient denies having any suicidal or homicidal ideation intent or plan. Perceptions: Patient denies any auditory or visual hallucinations. Though content/process: There is no evidence of any delusional thought content and thought process is linear and goal-directed. Memory and concentration: AOX3, grossly intact for the purposes of this session Judgment and insight: improving mildly Assessment/Plan: Continue with current diagnoses: Mood disorder, unspecified, likely bipolar disorder, Noncompliance with medication regimen, nicotine dependance, cannabis use disorder Patient continues to meet criteria for inpatient psychiatric admission for symptom stabilization and safety. Patient will be maintained on current psychotropic medication regimen. - Continue sertraline 50 mg daily for depression - Continue Abilify 7.5 mg daily for mood stabilization (planned increase to 10 mg daily tomorrow) Monitor for medication compliance and for any psychotropic medication side effects. Will continue to monitor ongoing response to treatment. Encouraged participation in milieu.
[2025-01-26] MEDS: ARIPiprazole 10 MG TAB PO SCH (08:49)
--- NOTE | 2025-01-26 12:09 | P.PN ---
Progress Note - Text Interval history: Patient was seen in the dayroom and was directable and agreeable to speak with assembly instructions writer. He described his mood as "calm" and feels that overall "the medicine is working". He notices that he does not feel as irritable and is more at ease. The stomach difficulty that he has been feeling yesterday seems to have resolved . He feels this was also potentially related to some mild nicotine withdrawal. He is open to pursuing care on an outpatient basis for hospital discharge. at this time patient denies any suicidal or homicidal ideations intent or plan. Denies any auditory or visual hallucinations. Patient denies any significant side effects from the medications and has been compliant with meds. Mental status exam: General Appearance: Patient appears to be stated age is alert, directable, and cooperative. Behavior: No agitated behavior. Patient is calm and directable Speech: Patient's speech is fluent and nonpressured. Mood/Affect: Mood "calm", affect is congruent and euthymic Suicidality/Homicidality: Patient denies having any suicidal or homicidal ideation intent or plan. Perceptions: Patient denies any auditory or visual hallucinations. Though content/process: There is no evidence of any delusional thought content and thought process is linear and goal-directed. Memory and concentration: AOX3, grossly intact for the purposes of this session Judgment and insight: improving mildly Assessment/Plan: Continue with current diagnoses: Mood disorder, unspecified, likely bipolar disorder, Noncompliance with medication regimen, nicotine dependance, cannabis use disorder Patient continues to meet criteria for inpatient psychiatric admission for symptom stabilization and safety. Patient will be maintained on current psychotropic medication regimen. - Continue sertraline 50 mg daily for depression - Increase Abilify to 10 mg daily for mood stabilization Monitor for medication compliance and for any psychotropic medication side effects. Will continue to monitor ongoing response to treatment. Encouraged participation in milieu.
--- NOTE | 2025-01-27 11:21 | P.PN ---
Progress Note - Text Progress Note Date: 01/27/25 Interval History: Patient was seen today today wandering the hallways and was agreeable to speak to automobile service writer in the office. Patient states that he is doing a bit better today overall. Claims that he feels his racing thoughts have been more controlled, he was less intrusive more directable during conversation. Claims that he feels that the Abilify has been helping him significantly. We spoke again about transitioning onto a long-acting injection he was okay with this today. Not endorsing any paranoia or delusions today. He was asking about potential discharge tomorrow he will be following up with [facility]. Denies any anxiety or depression today. going to some groups. Denies any auditory or visual hallucinations denies any suicidal homicidal ideations intent or plan. MENTAL STATUS EXAM: General Appearance: Patient appears to be stated age is alert, directable, and attempts to cooperate. Patient appears to have fair hygiene and grooming. Balding. Unshaved face. Dressed casually. Behavior: Patient is seated without any agitated behavior. more cooperative Speech: Patient's speech is fluent, more coherent Mood/Affect: Patient reports their mood is improving, affect is congruent and, improving Suicidality/Homicidality: Patient denies having any homicidal ideation intent or plan. Denies any suicidal ideations intent or plan Perceptions: Patient denies any visual hallucinations [and denies any auditory hallucinations Though content/process: There is no evidence of any delusional thought content and thought process is more goal oriented. Memory and concentration: AOX3, grossly intact for the purposes of this session Judgment and insight: improving mildly IMPRESSIONS: mood disorder, unspecified, likely bipolar disorder Noncompliance with medication regimen nicotine dependance cannabis use disorder PLAN: -Patient is admitted under voluntary status to MHU for stabilization of psychiatric symptoms and safety. Patient has signed adult voluntary form and medication consent and is placed in patient's chart. -Medications : Zoloft 50 mg nightly for mood/anxiety, trazodone 50mg qhs for sleep, Abilify 10 mg daily for mood stabilization starting monday, patient is agreeable to receive Abilify Maintena 400 mg IM today, next dose will be due on 02/24 qmonthly -Ativan and Haldol PRN for agitation/aggression -NRT -nicotine patch -SW on board for discharge planning. Encourage patient to participate in groups to work on coping skills. Hopeful for discharge tomorrow back home
[2025-01-27] MEDS: ARIPiprazole IM 400 MG VIAL (NO COST) PHARMACY STOCK IM SCH (12:35)
[2025-01-27 21:49] VITALS: RESP 12
[2025-01-28 08:25] VITALS: BP 130/84; PULSE 57; TEMP 97.5
--- NOTE | 2025-01-28 11:31 | P.DS ---
Providers Date of admission: 01/22/25 00:02 Expected date of discharge: 01/28/25 Attending physician: Tono Garg MD Consults: 01/22/25 00:16 Consult Physician Routine Consulting Provider: Marlen Physician Consult Reason/Comments: H & P Do you want consulting provider notified?: Already Contacted Primary care physician: Stated None - Discharge Diagnosis(es) (1) Bipolar disorder Current Visit: Yes Status: Acute Priority: High (2) Non compliance w medication regimen Current Visit: Yes Status: Acute Priority: High (3) Nicotine dependence Current Visit: Yes Status: Acute Priority: Low (4) Cannabis use disorder Current Visit: Yes Status: Acute Priority: Medium Hospital Course: Admission HPI: Admission note was completed by typewriter ribbon winder "Patient is a 34-year-old male. Lives with his mother and her significant other in a house. Single, no children. Unemployed. Patient presented to the hospital last night for psychiatric evaluation. Patient apparently was on a court order pickup for evaluation. Patient apparently was bizarre not taking medications appeared agitated. Urine drug screens positive for THC. Patient was last admitted to mental health unit in September 2024. He was discharged on lithium and Zoloft at that time. Patient was seen interacting with others on the unit, agreeable to speak to typewriter ribbon winder in the office today. He appeared to be a bit labile in his emotions, was loud at times during the interview, bizarre, intrusive at times. Claims that he about a week ago he got a new pillowcase cleaner from [facility] and claims that "I feel like nothing is progressing" and states that he feels that he may have scared her off and claims that he went to his room states that "maybe I talk too loud". He feels that he has been having more mood swings increase in energy was rambling at times, tangential during conversation, was fairly talkative endorsing racing thoughts. Claims that he has been feeling more worked up lately. Claims that his team at [facility] has been "playing the Devils advocate". He states that he is also still looking for his lost cat. He was fairly intrusive and animated. Claims that his sleep has been on and off appetite has been fair. patient denies any suicidal or homicidal ideations intent or plan. At this time patient denies any auditory or visual hallucinations. Patient admits to using marijuana and cigarettes." Hospital course: Upon admission to the unit patient was directable and agreeable to commence treatment and signed adult voluntary form. Patient was initially bizarre, delusional and intrusive however with time and treatment patient got along well with other patients on the unit and followed unit protocol. Patient was compliant with the medications and denied any side effects throughout hospital course. Patient was started on Zoloft increased to a dose of 50 mg nightly for mood/anxiety, trazodone 50 mg nightly for sleep, Abilify 10 mg daily for mood stabilization. Patient was agreeable to receive Abilify Maintena 400 mg IM on 01/27, next dose will be due at [facility] q. monthly on 02/24. Patient spoke of his stressors and engaged in therapy both group/activity therapy. Patient was also seen by medical team for history and physical exam. Throughout the course of the hospitalization patient gradually improved with regards to mood, anxiety, psychosis, mood lability, sleep and became more future oriented with improved insight and judgment. On the day of discharge patient denied any suicidal or homicidal ideations intent or plan denied any auditory or visual hallucinations. Patient endorsed wanting to live for their health and family. The patient denied any access to guns or weapons. Patient denied any paranoia and did not endorse any delusions. Patient does have a significant history of substance abuse and was counseled on abstaining from all substances including alcohol and marijuana. Patient elected to do outpatient substance use treatment program through their outpatient provider.. Patient was also counseled on the medications and need for regular compliance and was encouraged to follow-up with their outpatient appointment for mental health and also for primary care. Prior to discharge a family meeting will be arranged by medical social consultant to answer any questions and ensure safety upon discharge incuding making sure that guns/weapons are either removed from the home or locked away. Mental status exam: General Appearance: Patient appears to be thin, shaved head, stated age is alert, pleasant, and cooperative. Patient is in no acute distress and has improved hygiene and grooming Behavior: Patient is calmly seated without any agitated behavior. Cooperative Speech: Patient's speech is fluent and nonpressured. Mood/Affect: Patient reports their mood is "good", affect is congruent and euthymic. Suicidality/Homicidality: Patient denies having any suicidal or homicidal ideation intent or plan. Perceptions: Patient denies any auditory or visual hallucinations. Though content/process: There is no evidence of any delusional thought content and thought process is linear and goal-directed. More future oriented Memory and concentration: AOX3, grossly intact for the purposes of this session. Can spell "WORLD" backwards correctly. Judgment and insight: improved with guarded prognosis Impression: Bipolar disorder Noncompliance with medication regimen Cannabis use disorder Nicotine dependence Plan: -Continue with discharge today as patient has improved and stabilized psychiatrically and is not currently an imminent threat to themself and/or others. Patient will remain at chronically elevated risk for harm to self and/or others due to their impulsivity and substance abuse. -Continue medications: Continue Abilify 10 mg daily p.o. for mood stabilization for 14 more days then discontinue. Patient received Abilify Maintena 400 mg IM on 01/27 next dose will be due at [facility] q. monthly on 02/24. Zoloft 50 mg nightly for mood/anxiety, trazodone 50 mg nightly for sleep/mood -Patient was counseled on the need for medication compliance and appropriate follow-up at mental health and also primary care for medical issues. Patient verbalized understanding and agreed. -Social work to help coordinate patients discharge today. also to ensure safe home environment that guns/weapons are either removed from the home or locked away. Social work also to arrange for patients follow up appointments with [facility] for psychiatric care along with follow up with primary care provider. -Patient counseled on abstaining from recreational drugs and marijuana and alcohol. Was informed/educated on the adverse effects on their physical and mental health. Patient verbally agreed and understood. Patient was offered substance abuse treatment however declined at this time. -Patient was instructed to return to the hospital or seek immediate medical care if their psychiatric or medical symptoms do worsen or reoccur. Allergies Allergy/AdvReac Type Severity Reaction Status Date / Time Fish Containing Products Allergy Anaphylaxis Verified 01/21/25 20:20 [Fish] peanut Allergy Anaphylaxis Verified 01/21/25 20:20 shellfish derived [Shellfish] Allergy Rash/Hives Verified 01/21/25 20:20 shrimp Allergy Rash/Hives Verified 01/21/25 20:20 tree nut Allergy Anaphylaxis Verified 01/21/25 20:20 Laboratory Results WBC 6.9 k/uL (3.8-10.6) 01/22/25 08:02 RBC 4.80 m/uL (4.30-5.90) 01/22/25 08:02 Hgb 14.7 gm/dL (13.0-17.5) 01/22/25 08:02 Hct 47.9 % (39.0-53.0) 01/22/25 08:02 MCV 99.9 fL (80.0-100.0) 01/22/25 08:02 MCH 30.6 pg (25.0-35.0) 01/22/25 08:02 MCHC 30.6 g/dL (31.0-37.0) L 01/22/25 08:02 RDW 11.7 % (11.5-15.5) 01/22/25 08:02 Plt Count 331 k/uL (150-450) 01/22/25 08:02 MPV 7.2 01/22/25 08:02 Neutrophils % 59 % 01/22/25 08:02 Lymphocytes % 27 % 01/22/25 08:02 Monocytes % 6 % 01/22/25 08:02 Eosinophils % 6 % 01/22/25 08:02 Basophils % 1 % 01/22/25 08:02 Neutrophils # 4.1 k/uL (1.3-7.7) 01/22/25 08:02 Lymphocytes # 1.8 k/uL (1.0-4.8) 01/22/25 08:02 Monocytes # 0.4 k/uL (0-1.0) 01/22/25 08:02 Eosinophils # 0.4 k/uL (0-0.7) 01/22/25 08:02 Basophils # 0.1 k/uL (0-0.2) 01/22/25 08:02 Sodium 138 mmol/L (137-145) 01/22/25 08:02 Potassium 4.4 mmol/L (3.5-5.1) 01/22/25 08:02 Chloride 103 mmol/L (98-107) 01/22/25 08:02 Carbon Dioxide 27 mmol/L (22-30) 01/22/25 08:02 Anion Gap 8 mmol/L 01/22/25 08:02 BUN 15 mg/dL (9-20) 01/22/25 08:02 Creatinine 0.68 mg/dL (0.66-1.25) 01/22/25 08:02 Est GFR (CKD-EPI)AfAm >90 (>60 ml/min/1.73 sqM) 01/22/25 08:02 Est GFR (CKD-EPI)NonAf >90 (>60 ml/min/1.73 sqM) 01/22/25 08:02 Glucose 95 mg/dL (74-99) 01/22/25 08:[address] Glu mg/dL 117 mg/dL 01/22/25 08:02 Hemoglobin A1c 5.7 % (<=6.0) 01/22/25 08:02 Calcium 9.3 mg/dL (8.4-10.2) 01/22/25 08:02 Total Bilirubin 0.4 mg/dL (0.2-1.3) 01/22/25 08:02 AST 20 U/L (17-59) 01/22/25 08:02 ALT 21 U/L (4-49) 01/22/25 08:02 Alkaline Phosphatase 92 U/L (38-126) 01/22/25 08:02 Total Protein 7.1 g/dL (6.3-8.2) 01/22/25 08:02 Albumin 4.6 g/dL (3.5-5.0) 01/22/25 08:02 Triglycerides 118.00 mg/dL (0.00-149.00) 01/22/25 08:02 Cholesterol 136.00 mg/dL (0.00-200.00) 01/22/25 08:02 LDL Cholesterol, Calc 74.3 mg/dL (0.0-131.0) 01/22/25 08:02 VLDL Cholesterol, Calc 23.60 mg/dL (5.00-40.00) 01/22/25 08:02 HDL Cholesterol 38.10 mg/dL (40.00-60.00) L 01/22/25 08:02 Cholesterol/HDL Ratio 3.57 Ratio 01/22/25 08:02 TSH 2.330 mIU/L (0.465-4.680) 01/22/25 08:02 Urine Color Yellow 01/21/25 22:47 Urine Appearance Cloudy (Clear) 01/21/25 22:47 Urine pH 7.0 (5.0-8.0) 01/21/25 22:47 Ur Specific [place] 1.027 (1.001-1.035) 01/21/25 22:47 Urine Protein Trace (Negative) H 01/21/25 22:47 Urine Glucose (UA) Negative (Negative) 01/21/25 22:47 Urine Ketones Negative (Negative) 01/21/25 22:47 Urine Blood Negative (Negative) 01/21/25: Urine Nitrite Negative (Negative) 01/21/25: Urine Bilirubin Negative (Negative) 01/21/25 22: Urine Urobilinogen 2.0 mg/dL (<2.0) 01/21/25 22: Ur Leukocyte Esterase Negative (Negative) 01/21/25: Urine RBC 1 /hpf (0-5) 01/21/25 22:47 Urine WBC 3 /hpf (0-5) 01/21/25 22:47 Ur Squamous Epith Cells <1 /hpf (0-4) 01/21/25 22: Amorphous Sediment Few /hpf (None) H 01/21/25 22:47 Urine Mucus Occasional /hpf (None) H 01/21/25 22:47 Urine Opiates Screen Not Detected (NotDetected) 01/21/25 22:47 Ur Oxycodone Screen Not Detected (NotDetected) 01/21/25 22:47 Urine Methadone Screen Not Detected (NotDetected) 01/21/25 22:47 Ur Barbiturates Screen Not Detected (NotDetected) 01/21/25 22:47 U Tricyclic Antidepress Not Detected (NotDetected) 01/21/25 22:47 Ur Phencyclidine Scrn Not Detected (NotDetected) 01/21/25 22:47 Ur Amphetamines Screen Not Detected (NotDetected) 01/21/25 22:47 U Methamphetamines Scrn Not Detected (NotDetected) 01/21/25 22:47 U Benzodiazepines Scrn Not Detected (NotDetected) 01/21/25 22:47 Urine Cocaine Screen Not Detected (NotDetected) 01/21/25 22:47 U Marijuana (THC) Screen Detected (NotDetected) H 01/21/25 22:47 SARS-CoV-2 (PCR) Not Detected (Not Detectd) 01/21/25 22:47 Vital Signs Temp 97.5 F L 01/28/25 08:24 Pulse 57 L 01/28/25 08:24 Resp 12 01/27/25 20:51 BP 130/84 01/28/25 08:24 Pulse Ox 99 01/28/25 08:24 FiO2 Patient Condition at Discharge: Stable Plan - Discharge Summary Discharge Rx Participant: No New Discharge Prescriptions: New ARIPiprazole [Abilify] 10 mg PO DAILY 14 Days #14 tab ARIPiprazole IM [Abilify Maintena] 400 mg IM QMONTHLY #1 each traZODone HCL [Desyrel] 50 mg PO HS 30 Days #30 tab Sertraline [Zoloft] 50 mg PO HS 30 Days #30 tab Nicotine 14Mg/24Hr Patch [Habitrol] 1 patch TRANSDERM DAILY 14 Days #14 patch Discontinued [place] Carbonate 300 mg PO HS 30 Days #30 cap Nicotine 14Mg/24Hr Patch [Habitrol] 1 patch TRANSDERM DAILY 14 Days #14 patch Sertraline [Zoloft] 50 mg PO HS 30 Days #30 tab Discharge Medication List ARIPiprazole IM [Abilify Maintena] 400 mg IM QMONTHLY #1 each 01/28/25 [Rx] ARIPiprazole [Abilify] 10 mg PO DAILY 14 Days #14 tab 01/28/25 [Rx] Nicotine 14Mg/24Hr Patch [Habitrol] 1 patch TRANSDERM DAILY 14 Days #14 patch 01/28/25 [Rx] Sertraline [Zoloft] 50 mg PO HS 30 Days #30 tab 01/28/25 [Rx] traZODone HCL [Desyrel] 50 mg PO HS 30 Days #30 tab 01/28/25 [Rx] Follow up Appointment(s)/Referral(s): Center, Internal [Other] - [facility]Outside] - 01/29/25 2:30 pm (01/29 @ 14:30 02/04 @ 15:00 with Chandni ) Patient Instructions/Handouts: How to Stop Smoking (DC), Depression (DC) Activity/Diet/Wound Care/Special Instructions: [facility] Discharge Info Avoid the use of street drugs and alcohol. Take all medications as prescribed. When you are in need of refills on your medications, please contact your outpatient medical provider and/or outpatient psychiatrist. Please go to your scheduled outpatient appointments for aftercare treatment. If symptoms return or become worse, call the crisis line at or and/or visit the nearest emergency room for assistance. National Suicide and Crisis Lifeline - call or text 878 Discharge Disposition: HOME SELF-CARE
== END 2025-01-28 12:25 | disposition home or self-care (01) | DRG 753 ==
LOC: EC 19:32 → 3MHU 01-22 00:02
PROVIDERS: ADMIT Psychiatry & Neurology Psychiatry; ATTEND Psychiatry & Neurology Psychiatry
DX: F31.9 Bipolar disorder, unspecified (principal); F12.10 Cannabis abuse, uncomplicated; J45.909 Unspecified asthma, uncomplicated; F17.210 Nicotine dependence, cigarettes, uncomplicated; F41.0 Panic disorder [episodic paroxysmal anxiety]; Z56.0 Unemployment, unspecified; Z91.148 Patient's other noncompliance with medication regimen for other reason; Z79.899 Other long term (current) drug therapy; Z71.51 Drug abuse counseling and surveillance of drug abuser
CPT/HCPCS: 80053; 80061; 80306; 81001; 82075; 83036; 84443; 85025; 87635; 99285